=== PATIENT | female | born 1990 | race Caucasian/White ===

== ENCOUNTER 2017-06-14 16:55 | Emergency (ER) | payer MEDICAID ==
[~2017-06-14] VITALS: Ht 160 cm; Wt 55.7 kg
[~2017-06-14 16:55] MED LIST: IBUP-1223 PO
[2017-06-14 16:56] VITALS: BP 108/73
== END 2017-06-14 17:32 | disposition left against medical advice (07) ==
LOC: ED 17:26
DX: K08.89 Other specified disorders of teeth and supporting structures (principal); Z53.21 Procedure and treatment not carried out due to patient leaving prior to being seen by health care provider

== ENCOUNTER 2018-01-26 09:15 | Emergency (ER) | payer MEDICAID ==
[~2018-01-26] VITALS: Ht 160 cm; Wt 55.0 kg
[2018-01-26 09:18] VITALS: BP 127/94
== END 2018-01-26 09:40 | disposition home or self-care (01) ==
LOC: ED 09:31
DX: K02.9 Dental caries, unspecified (principal); K08.89 Other specified disorders of teeth and supporting structures
CPT/HCPCS: 99283

== ENCOUNTER 2020-06-19 10:26 | Outpatient (CLI) | payer MEDICAID ==
[~2020-06-19] VITALS: Ht 160 cm; Wt 72.7 kg
[2020-06-19 11:02] VITALS: BP 124/83
[2020-06-19 12:12] LABS: ALBUMIN 2.6 g/dL (3.4-5.0); ANION GAP 8 mmol/L (5-15); CALCIUM 8.5 mg/dL (8.5-10.1); CHLORIDE 106 mmol/L (98-107)
[2020-06-19 12:17] LABS: ALANINE AMINOTRANSFERASE 14 U/L (12-78); ALKALINE PHOSPHATASE 177 U/L (45-117); BILIRUBIN,TOTAL 0.5 mg/dL (0.2-1.0); CREATININE 0.75 mg/dL (0.55-1.02); TOTAL PROTEIN 7.2 g/dL (6.4-8.2)
[2020-06-19 12:19] LABS: BASOPHILS % (AUTO) 0 % (0-1); EOSINOPHILS % (AUTO) 1 % (1-7); LYMPHOCYTES % (AUTO) 11 % (22-44); MEAN CORPUSCULAR HGB CONC 31.8 g/dL (32.4-35.8); MEAN PLATELET VOLUME 8.6 fL (7.4-10.4); MONOCYTES % (AUTO) 5 % (2-9); NEUTROPHILS % (AUTO) 83 % (42-75); PLATELET COUNT 194 x10^3/uL (130-400); RED BLOOD COUNT 4.29 x10^6/uL (3.82-5.3); RED CELL DISTRIBUTION WIDTH 18.5 % (9.6-15.2)
[2020-06-19 12:21] LABS: MD NO
[2020-06-19 12:24] LABS: MICROSCOPIC INDICATED
[2020-06-19 13:34] LABS: AMPHETAMINE SCREEN, URINE Positive (Negative); BARBITURATE SCREEN, URINE Negative (Negative); BENZODIAZEPINE SCREEN, URINE Negative (Negative); CANNABINOID SCREEN, URINE Negative (Negative); COCAINE SCREEN, URINE Negative (Negative); METHADONE SCREEN, URINE Negative (Negative); OPIATE SCREEN, URINE Negative (Negative)
[2020-06-19] MEDS ORDERED: ONDANSETRON ODT 4 MG ONE (14:05)
[2020-06-19] MEDS ORDERED: ONDANSETRON ODT 4 MG PO ONE (14:30)
== END 2020-06-19 14:08 | disposition home or self-care (01) ==
LOC: LDOP 10:26
PROVIDERS: ATTEND Obstetrics & Gynecology
DX: O26.893 Other specified pregnancy related conditions, third trimester (principal); R52 Pain, unspecified; Z3A.39 39 weeks gestation of pregnancy
CPT/HCPCS: 36415; 59025; 80053; 80307; 81001; 85025; 86592; 86762; 86850; 86900; 87077; 87081; 87086; 87340; 87635; 87806; Q0162; 87186; G0475

== ENCOUNTER 2020-06-23 00:22 | Inpatient (IN) | payer MEDICAID ==
[~2020-06-23] VITALS: Ht 160 cm; Wt 72.7 kg
[2020-06-23] MEDS ORDERED: MISOPROSTOL 200 MCG TABLET ONE (00:39)
[2020-06-23] MEDS ORDERED: NEWBORN KIT ONE (00:39)
[2020-06-23] MEDS ORDERED: OXYTOCIN 30U/ 0.9% NaCL 500ML 500 ML ONE ×2 (00:39→02:22)
[2020-06-23] MEDS ORDERED: FENTANYL PF 100 MCG/2ML ONE (00:39)
[2020-06-23] MEDS ORDERED: LIDOCAINE 1%, 20ML ONE (00:39)
[2020-06-23] MEDS ORDERED: FENTANYL PF 100 MCG/2ML IV PRN (01:00)
[2020-06-23] MEDS ORDERED: TERBUTALINE 1 MG/ML, 1ML IVPush PRN (01:00)
[2020-06-23] MEDS ORDERED: D5%-LACTATED RINGERS 1,000 ML IV SCH (01:00)
[2020-06-23] MEDS ORDERED: METOCLOPRAMIDE 5 MG/ML, 2ML IVPush PRN (01:00)
[2020-06-23] MEDS ORDERED: OXYTOCIN 30U/ 0.9% NaCL 500ML 500 ML IV PRN (01:00)
[2020-06-23] MEDS ORDERED: OXYTOCIN 30U/ 0.9% NaCL 500ML 500 ML IV ONE (01:00)
[2020-06-23] MEDS ORDERED: LACTATED RINGERS 1,000 ML IV SCH (01:00)
[2020-06-23] MEDS ORDERED: CALCIUM CARBONATE 500 MG TAB.CHEW PO PRN (01:00)
[2020-06-23] MEDS ORDERED: SODIUM CITRATE/CITRIC ACID 30 ML UDC PO PRN (01:00)
[2020-06-23] MEDS ORDERED: TERBUTALINE 1 MG/ML, 1ML SQ PRN (01:00)
[2020-06-23] MEDS ORDERED: LACTATED RINGERS 1,000 ML IVBOLUS PRN (01:00)
[2020-06-23] MEDS ORDERED: FENTANYL/BUPIV./NS/PF 250 ML EPIDCONT SCH (01:00)
[2020-06-23] MEDS ORDERED: FENTANYL PF 100 MCG/2ML IVPush PRN (01:00)
[2020-06-23] MEDS ORDERED: ONDANSETRON 2MG/ML, 2ML IVPush PRN (01:00)
[2020-06-23 01:47] LABS: MEAN CORPUSCULAR HEMOGLOBIN 23.5 pg (27.0-34.8); MEAN CORPUSCULAR HGB CONC 31.5 g/dL (32.4-35.8); MEAN PLATELET VOLUME 8.7 fL (7.4-10.4); PLATELET COUNT 205 x10^3/uL (130-400); RED BLOOD COUNT 4.35 x10^6/uL (3.82-5.3)
[2020-06-23 02:36] LABS: MD YES
[2020-06-23 02:38] LABS: ANISOCYTOSIS 1+; BAND#(MANUAL) 0.45 x10^3/uL; BANDS%(MANUAL) 3 % (0-7); LYMPHS% (MANUAL) 4 % (22-44); MICROCYTOSIS 1+; MONOS#(MANUAL) 0.75 x10^3/uL (0.3-2.7); MONOS% (MANUAL) 5 % (2-9); MYELOCYTES# (MANUAL) 0.15 x10^3/uL (0-0); MYELOCYTES% (MANUAL) 1 % (0-0); OVALOCYTES 1+; SEG#(MANUAL) 13.05 x10^3/uL (1.8-6.8); SEGS% (MANUAL) 87 % (42-75)
[2020-06-23 02:39] LABS: <PLATELET ESTIMATE> ADEQUATE; <PLT MORPHOLOGY> NORMAL PLT MORPH
[2020-06-23] MEDS ORDERED: SIMETHICONE 80 MG CHEW TAB PO PRN (03:00)
[2020-06-23] MEDS ORDERED: ONDANSETRON 2MG/ML, 2ML IV PRN (03:00)
[2020-06-23] MEDS ORDERED: OXYcodone/APAP 5/325MG TABLET PO PRN ×2 (03:00)
[2020-06-23] MEDS ORDERED: MISOPROSTOL 200 MCG TABLET PR PRN (03:00)
[2020-06-23] MEDS ORDERED: OXYTOCIN 30U/ 0.9% NaCL 500ML 500 ML IV SCH (03:00)
[2020-06-23] MEDS ORDERED: IBUPROFEN 800 MG TABLET PO PRN (03:00)
[2020-06-23] MEDS ORDERED: ACETAMINOPHEN 325 MG TABLET PO PRN ×2 (03:00)
[2020-06-23 04:41] VITALS: BP 113/76
[2020-06-23 05:19] LABS: AMPHETAMINE SCREEN, URINE Positive (Negative); BARBITURATE SCREEN, URINE Negative (Negative); BENZODIAZEPINE SCREEN, URINE Negative (Negative); CANNABINOID SCREEN, URINE Negative (Negative); COCAINE SCREEN, URINE Negative (Negative); METHADONE SCREEN, URINE Negative (Negative); OPIATE SCREEN, URINE Negative (Negative)
[2020-06-23 07:30] VITALS: BP 111/75
[2020-06-23] MEDS: PRENATAL VIT/IRON/FA 1 EACH TABLET PO SCH ×2 (09:00→15:49)
[2020-06-23 10:49] LABS: BASOPHILS % (AUTO) 0 % (0-1); EOSINOPHILS % (AUTO) 1 % (1-7); LYMPHOCYTES % (AUTO) 12 % (22-44); MEAN CORPUSCULAR HEMOGLOBIN 23.7 pg (27.0-34.8); MEAN CORPUSCULAR HGB CONC 32.2 g/dL (32.4-35.8); MEAN PLATELET VOLUME 8.2 fL (7.4-10.4); MONOCYTES % (AUTO) 6 % (2-9); NEUTROPHILS % (AUTO) 82 % (42-75); PLATELET COUNT 190 x10^3/uL (130-400); RED BLOOD COUNT 3.69 x10^6/uL (3.82-5.3); RED CELL DISTRIBUTION WIDTH 19.2 % (9.6-15.2)
[2020-06-23 10:54] LABS: MD NO
[2020-06-23] MEDS: DOCUSATE 100 MG CAPSULE PO PRN ×2 (10:55→15:49)
[2020-06-23 11:55] VITALS: BP 118/77
[2020-06-23] MEDS ORDERED: DOCU-131 PO (14:59)
[2020-06-23] MEDS ORDERED: FERR325T5 PO (14:59)
[2020-06-23] MEDS ORDERED: IBUP-1222 PO (14:59)
[2020-06-23] MEDS ORDERED: FERROUS SULFATE 325 MG TABLET ONE (15:47)
== END 2020-06-23 16:14 | disposition home or self-care (01) | DRG 807 ==
LOC: LDOP 00:22 → LDIP 00:33 → 2NW 04:19
PROVIDERS: ADMIT Obstetrics & Gynecology; ATTEND Obstetrics & Gynecology
PROC: 10E0XZZ Delivery of Products of Conception, External Approach (ICD-10-PCS; principal; 2020-06-23)
DX: O77.0 Labor and delivery complicated by meconium in amniotic fluid (principal); Z37.0 Single live birth; Z3A.40 40 weeks gestation of pregnancy; O99.344 Other mental disorders complicating childbirth; F32.9 Major depressive disorder, single episode, unspecified; Z87.891 Personal history of nicotine dependence; O69.81X0 Labor and delivery complicated by cord around neck, without compression, not applicable or unspecified
CPT/HCPCS: 36415; 80307; 85025; 86592; 86850; 86900; G0378; J3010; J2590